=== PATIENT | female | born 1965 | race Caucasian/White ===

== ENCOUNTER → 2019-12-18 | Outpatient (CLI) | payer BC ==
[~2019-12-18] VITALS: Ht 165 cm; Wt 87.0 kg
[~2019-12-18] MED LIST: CATHETER FLUSH 10 ML SYR IV PRN; REGADENOSON 0.4 MG/5 ML SYR (LEXISCAN) IV ONE
[2019-12-18 09:37] VITALS: BP 139/90
[2019-12-18 09:48] VITALS: BP 146/74
--- NOTE | 2019-12-19 09:59 | STRESS TEST ---
DATE OF SERVICE: 12/18/2019 RESTING AND POST REGADENOSON TECHNETIUM-99M TETROFOSMIN SPECT CT IMAGING. ORDERING PHYSICIAN: Dr. Trevino. CLINICAL DIAGNOSIS: Near syncope and chest discomfort. Baseline images were carried out after injection of 10.98 mCi of technetium-99m Tetrofosmin. This was followed by 0.4 mg Regadenoson and 28.1 mCi of technetium-99m Tetrofosmin for stress imaging. The electrocardiogram showed sinus rhythm at baseline. It did not change significantly with the Regadenoson infusion. She noted some nausea following Regadenoson, which resolved in a few minutes. Review of images at rest and following stress does not indicate any significant perfusion defects consistent with myocardial ischemia or infarction. Gated images show normal global left ventricular systolic function and normal regional wall motion. Left ventricular ejection fraction is calculated to be 72%. Left ventricular end diastolic volume is 44 mL. TID is absent (0.97). CONCLUSIONS: 1. No evidence of any significant myocardial ischemia or infarction on this study. 2. Normal regional wall motion. 3. Normal global left ventricular systolic function with a calculated ejection fraction of 72%. Job ID: [id number] DocumentID: [id number] Dictated Date: 12/19/2019 08:55:05 Vascular Neurologist Date: 12/19/2019 09:58:19 Dictated By: MITALI TREVINO MD, MA, FACP, FACC, MTDD
== END ==
LOC: CARD 08:05
PROVIDERS: ATTEND Internal Medicine Cardiovascular Disease
DX: R07.89 Other chest pain (principal); R55 Syncope and collapse; Z72.0 Tobacco use
CPT/HCPCS: 78452; 93017

== ENCOUNTER → 2019-12-20 | Outpatient (CLI) | payer BC | LOC: CARD 09:00 → EDUNIT# 09:00 | PROVIDERS: ATTEND Internal Medicine Cardiovascular Disease | DX: R55 Syncope and collapse (principal); R07.89 Other chest pain; Z72.0 Tobacco use | CPT/HCPCS: 93225; 93226; 93306 ==

== ENCOUNTER → 2020-05-15 | Outpatient (CLI) | payer BC | LOC: LABNPT 07:02 | PROVIDERS: ATTEND Otolaryngology Otolaryngology/Facial Plastic Surgery | DX: G47.33 Obstructive sleep apnea (adult) (pediatric) (principal); Z53.9 Procedure and treatment not carried out, unspecified reason ==

== ENCOUNTER → 2020-06-13 | Outpatient (CLI) | payer BC ==
--- NOTE | 2020-06-13 16:18 | Diagnostic Imaging Report ---
INDICATION: Palpable lump in right breast. COMPARISON: Correlation is made with prior mammogram from 09/27/2019. EXAMINATION: 2D and 3D bilateral diagnostic mammography was performed with CAD. The current study was also evaluated with a Computer Aided Detection (CAD) system. FINDINGS: Scattered fibroglandular densities are identified, bilaterally. BB marker was placed at the area of palpable abnormality in the lower inner right breast. No underlying mass is detected. No malignant appearing microcalcifications are seen. Axillae are unremarkable. IMPRESSION: No mammographic features suspicious for malignancy are identified. Even so, directed sonographic interrogation of the area of palpable abnormality in the right breast is recommended and will be performed today. ACR BI-RADS Category 0: Incomplete. (Needs additional imaging evaluation). Result letter will be mailed to the patient. Note: At least 10% of breast cancer is not imaged by mammography. Dictated on workstation # [id number]
--- NOTE | 2020-06-13 16:28 | Diagnostic Imaging Report ---
INDICATION: Right breast lump. COMPARISON: Correlation is made with diagnostic mammogram from earlier the same day. EXAMINATION: Sonographic interrogation of the area of lump in the right breast was performed and corresponds to the 4:00 location, 4 cm from the nipple. FINDINGS: At this location, just deep to the skin surface, is an area of slightly increased echogenicity, measuring 1.2 x 0.6 x 0.9 cm. This has the appearance of a hematoma. Patient does report recent bruising at this location. No concerning sonographic finding is identified. No abnormal vascularity is seen. IMPRESSION: Probable resolving hematoma just deep to the skin surface at the area of palpable abnormality at 4:00 location of right breast. Continued clinical and self breast exam is recommended to confirm clearing of the palpable abnormality. Dictated on workstation # [id number]
== END ==
LOC: RAD 13:45
PROVIDERS: ATTEND Nurse Practitioner
DX: N63.14 Unspecified lump in the right breast, lower inner quadrant (principal)
CPT/HCPCS: 76642; 77066; G0279; 77062

== ENCOUNTER → 2020-06-13 | Outpatient (CLI) | payer BC | LOC: LABNPT 05:53 | PROVIDERS: ATTEND Otolaryngology Otolaryngology/Facial Plastic Surgery | DX: G47.33 Obstructive sleep apnea (adult) (pediatric) (principal); Z20.828 Contact with and (suspected) exposure to other viral communicable diseases | CPT/HCPCS: 87635 ==

== ENCOUNTER 2020-06-16 21:00 | Outpatient (CLI) | payer BC | END 2020-06-17 06:05 | disposition home or self-care (01) | LOC: SLEEP 21:00 | PROVIDERS: ATTEND Otolaryngology Otolaryngology/Facial Plastic Surgery | DX: G47.33 Obstructive sleep apnea (adult) (pediatric) (principal); I49.9 Cardiac arrhythmia, unspecified; T78.40XA Allergy, unspecified, initial encounter; Z90.710 Acquired absence of both cervix and uterus; Z98.890 Other specified postprocedural states | CPT/HCPCS: 95810 ==

== ENCOUNTER → 2020-07-04 | Outpatient (CLI) | payer BC | LOC: LABNPT 05:59 | PROVIDERS: ATTEND Otolaryngology Otolaryngology/Facial Plastic Surgery | DX: G47.33 Obstructive sleep apnea (adult) (pediatric) (principal); Z20.828 Contact with and (suspected) exposure to other viral communicable diseases | CPT/HCPCS: 87635 ==

== ENCOUNTER 2020-07-07 20:27 | Outpatient (CLI) | payer BC | END 2020-07-08 06:15 | disposition home or self-care (01) | LOC: SLEEP 20:27 | PROVIDERS: ATTEND Nurse Practitioner | DX: G47.33 Obstructive sleep apnea (adult) (pediatric) (principal); G47.00 Insomnia, unspecified; I10 Essential (primary) hypertension; G47.36 Sleep related hypoventilation in conditions classified elsewhere; I48.91 Unspecified atrial fibrillation; J30.9 Allergic rhinitis, unspecified; R09.81 Nasal congestion; R09.82 Postnasal drip | CPT/HCPCS: 95811 ==

== ENCOUNTER → 2020-09-04 | Outpatient (CLI) | payer BC | LOC: CARD 11:00 | PROVIDERS: ATTEND Nurse Practitioner Family | DX: R00.2 Palpitations (principal) | CPT/HCPCS: 93225; 93226 ==

== ENCOUNTER → 2020-11-10 | Outpatient (CLI) | payer BC ==
[~2020-11-10] MED LIST changes: -CATHETER FLUSH 10 ML SYR IV PRN; +GADOBUTROL 10 MMOL/10 ML (GADAVIST) VIAL IV ONE; -REGADENOSON 0.4 MG/5 ML SYR (LEXISCAN) IV ONE
--- NOTE | 2020-11-10 11:17 | Diagnostic Imaging Report ---
CLINICAL INDICATION: Patient is having headaches. EXAM: MRI of the brain performed without and with 8 cc of Gadavist IV contrast. Sequences include axial DWI, ADC map, axial gradient echo, axial T2, axial FLAIR, axial T1, axial T1 post IV contrast, coronal T1 fat-sat post IV contrast, and sagittal T1 post IV contrast. COMPARISON: None. FINDINGS: There is bhfsb-gv-ocmfdvus amount of patchy and confluent high T2 signal involving the bilateral basal ganglia region, bilateral external capsule region, and effie. There are small patchy areas of high T2 signal involving the bilateral cerebral hemisphere, malone radiata and centrum semiovale regions and periventricular regions. There is also small area of increased T2 signal involving the left cerebellar dentate nucleus region. These findings are grossly symmetric. There is no abnormal IV contrast enhancement. The brain parenchymal volume appears appropriate for patient's age. There is no hydrocephalus. Basal cisterns are unremarkable. The [place] vascular structures show no gross abnormality as visualized. The pituitary gland, sella, and suprasellar regions are unremarkable as visualized. The extracranial soft tissue, skull, and orbits are unremarkable. IMPRESSION: 1: There is a izyyp-xy-aurxemez amount of focal and patchy areas of high T2 signal involving the bilateral basal ganglia region, effie, external capsule, deep white matter in both cerebral hemispheres and left cerebellar dentate nucleus region. Most of these areas demonstrate some degree of symmetry. There is no abnormal IV contrast enhancement. These findings may be seen with central pontine myelinolysis and extra pontine myelinolysis. Behcet's disease should also be excluded. Toxic or metabolic encephalopathy should also be excluded. Lumbar puncture is suggested for further evaluation. Correlation and comparison to prior brain imaging, if available, would also help better evaluate for chronicity of these findings. 2: Otherwise, the remainder of this exam is unremarkable. Results of this report discussed with Dr. Denilson Mcbride via the telephone on 11/10/2020 at 1110 hours. Dictated by: Dictated on workstation # [id number]
== END ==
LOC: RAD 09:47
PROVIDERS: ATTEND Psychiatry & Neurology Neurology
DX: R51.9 Headache, unspecified (principal); R90.82 White matter disease, unspecified
CPT/HCPCS: 70553

== ENCOUNTER 2020-11-23 12:02 | Inpatient (IN) | payer BC ==
[~2020-11-23] VITALS: Ht 165.1 cm; Wt 84.1 kg
--- NOTE | 2020-11-23 12:17 | ED Neurological Problem ---
General Chief Complaint: Neuro-Stroke Like Symptoms Stated Complaint: POSS STROKE Source: patient Exam Limitations: no limitations History of Present Illness Date Seen by Provider: Nov 23, 2020 Time Seen by Provider: 12:14 Initial Comments To ER by private vehicle with reports of strokelike symptoms. These began at 11 PM last night. This began with unequal pupils. She noticed her left pupil to be larger than the right. She also had some dizziness, imbalance when walking, nausea. She has no history of this. She is on medication for hypertension. She smokes 6 to 7 cigarettes/day. She does not typically take an aspirin but she did take 1 this morning before coming to ER. However that seems to have resolved today. She also has a history of migraines and does report a left- sided frontal headache. Timing/Duration: other (12 hours) Severity: moderate Associated Symptoms: nausea/vomiting; No slurred speech; trouble walking Allergies and Home Medications Allergies Coded Allergies: Pork/Porcine Containing Products (Verified Allergy, Unknown, 11/23/20) codeine (Verified Allergy, Unknown, 11/23/20) crab (Verified Allergy, Unknown, 11/23/20) strawberry (Verified Allergy, Unknown, 11/23/20) Patient Home Medication List Home Medication List Reviewed: Yes Review of Systems Review of Systems Constitutional: see HPI Eyes: No Symptoms Reported Ears, Nose, Mouth, Throat: no symptoms reported Respiratory: no symptoms reported Cardiovascular: no symptoms reported Genitourinary: no symptoms reported Musculoskeletal: no symptoms reported Skin: no symptoms reported Psychiatric/Neurological: See HPI Endocrine: No Symptoms Reported Hematologic/Lymphatic: No Symptoms Reported Physical Exam Vital Signs Vital Signs - First Documented 11/23/20 12:03 Pulse 62 Resp 25 B/P (MAP) 185/99 (127) Pulse Ox 98 O2 Delivery Room Air Capillary Refill : Height, Weight, BMI Height: '" Weight: lbs. oz. kg; 31.95 BMI Method: General Appearance: WD/WN, no apparent distress, other (Alert and oriented very pleasant. Heart rate is normal sinus rhythm without ectopy in the 60s. Blood pressure 185/98.) HEENT: normal ENT inspection, other (Left pupil is about 5 mm right is about 3- 4. No gaze palsy. No visual changes.) Neck: non-tender, full range of motion Respiratory: no respiratory distress, no accessory muscle use Cardiovascular: regular rate, rhythm, no murmur Gastrointestinal: normal bowel sounds, non tender, soft Neurologic/Psychiatric: alert, normal mood/affect, oriented x 3 Crainal Nerves: normal hearing, normal speech, PERRL Coordination/Gait: abnormal gait (She did have an abnormal gait, nearly falling into the bed upon entry into the room.) Motor/Sensory: other (She has some ataxia when rubbing the left heel up and down the right hoff. Otherwise no ataxia is noted.) Skin: normal color, warm/dry Stroke Onset of Symptoms Date of Onset of Symptoms: Nov 22, 2020 Time of Symptom Onset: 23:00 Onset of Symptoms: Yes NIH Stroke Scale Assessment Level of Consciousness: 0=Alert (0), Level of Consciousness-Questions: 0=Answers both month/age (0), LOC Commands: 0=Performs both tasks (0), Visual Moses: 0=No visual loss (0), Facial Movement (Facial Paresis): 0=Normal symmetrical mnt (0), Motor Function-Arms Right: 0=No drift (0), Motor Function-Arms Left: 0=No drift (0), Motor Function-Legs Right: 0=No drift (0), Motor Function-Legs Left: 0=No drift (0), Limb Ataxia: 1=Present in one limb (1), Sensory: 0=Normal:no loss (0), Best Language: 0=No aphasia (0), Dysarthria: 0=Normal (0), Extinction & Inattention: 0=No abnormality (0), Total: 1 Stroke Thrombolytic Exclusion Age 18 or Over: Yes Acute intenal hemorrhage: No History of CVA: No Uncontrolled Coagulation Defec: No Intracranial Hemorrhage: No Severe Hypertension: No GI or Bleed: No Subarachnoid Hemorrhage: No Intracranial Neoplasm/Aneurysm: No Oral Anticoagulants: No Surgery or Trauma: No Puncture of Non-Compressible V: No Recent CPR: No Diabetic Hemorrhagic Retinopat: No Organ Biopsy: No Recent Obstetric Delivery: No Glucose: No Significant Hepatic Dysfunctio: No NIH Stoke Scale >22: No Bacterial Endocarditis: No Pericarditis: No Improving Symptoms: No Platelets: No TPA Contraindication: No Progress/Results/Core Measures Results/Orders Lab Results Laboratory Tests Test 11/23/20 12:08 11/23/20 12:10 11/23/20 12:37 Range/Units Glucometer 112 H 70-110 MG/DL White Blood Count 10.3 4.3-11.0 10^3/uL Red Blood Count 4.18 3.80-5.11 10^6/uL Hemoglobin 13.2 11.5-16.0 g/dL Hematocrit 38 35-52 % Mean Corpuscular Volume 90 80-99 fL Mean Corpuscular Hemoglobin 32 25-34 pg Mean Corpuscular Hemoglobin Concent 35 32-36 g/dL Red Cell Distribution Width 12.7 10.0-14.5 % Platelet Count 386 130-400 10^3/uL Mean Platelet Volume 10.6 9.0-12.2 fL Immature Granulocyte % (Auto) 0 % Neutrophils (%) (Auto) 53 42-75 % Lymphocytes (%) (Auto) 38 12-44 % Monocytes (%) (Auto) 5 0-12 % Eosinophils (%) (Auto) 3 0-10 % Basophils (%) (Auto) 0 0-10 % Neutrophils # (Auto) 5.5 1.8-7.8 10^3/uL Lymphocytes # (Auto) 3.9 1.0-4.0 10^3/uL Monocytes # (Auto) 0.5 0.0-1.0 10^3/uL Eosinophils # (Auto) 0.3 0.0-0.3 10^3/uL Basophils # (Auto) 0.0 0.0-0.1 10^3/uL Immature Granulocyte # (Auto) 0.0 0.0-0.1 10^3/uL Prothrombin Time 13.0 12.2-14.7 SEC INR Comment 0.9 0.8-1.4 Activated Partial Thromboplast Time 33 24-35 SEC D-Dimer 0.32 0.00-0.49 UG/ML Sodium Level 138 135-145 MMOL/L Potassium Level 2.6 L 3.6-5.0 MMOL/L Chloride Level 105 98-107 MMOL/L Carbon Dioxide Level 21 21-32 MMOL/L Anion Gap 12 5-14 MMOL/L Blood Urea Nitrogen 11 7-18 MG/DL Creatinine 1.17 0.60-1.30 MG/DL Estimat Glomerular Filtration Rate 48 BUN/Creatinine Ratio 9 Glucose Level 106 H 70-105 MG/DL Calcium Level 9.3 8.5-10.1 MG/DL Corrected Calcium 9.5 8.5-10.1 MG/DL Total Bilirubin 0.3 0.1-1.0 MG/DL Aspartate Amino Transf (AST/SGOT) 15 5-34 U/L Alanine Aminotransferase (ALT/SGPT) 12 0-55 U/L Alkaline Phosphatase 113 40-136 U/L Troponin I < 0.028 <0.028 NG/ML Total Protein 7.1 6.4-8.2 GM/DL Albumin 3.8 3.2-4.5 GM/DL Urine Color YELLOW Urine Clarity CLEAR Urine pH 6.5 5-9 Urine Specific [place] <=1.005 1.016-1.022 Urine Protein NEGATIVE NEGATIVE Urine Glucose (UA) NEGATIVE NEGATIVE Urine Ketones NEGATIVE NEGATIVE Urine Nitrite NEGATIVE NEGATIVE Urine Bilirubin NEGATIVE NEGATIVE Urine Urobilinogen 0.2 < = 1.0 MG/DL Urine Leukocyte Esterase NEGATIVE NEGATIVE Urine RBC (Auto) NEGATIVE NEGATIVE Urine RBC NONE /HPF Urine WBC NONE /HPF Urine Squamous Epithelial Cells 2-5 /HPF Urine Crystals NONE /LPF Urine Bacteria NEGATIVE /HPF Urine Casts NONE /LPF Urine Mucus NEGATIVE /LPF Urine Culture Indicated NO My Orders Orders - CRYSTAL JASMINE APRN Cbc With Automated Diff (11/23/20 12:13) Protime With Inr (11/23/20 12:13) Partial Thromboplastin Time (11/23/20 12:13) Comprehensive Metabolic Panel (11/23/20 12:13) Fibrin Degradation Products (11/23/20 12:13) Troponin I (11/23/20 12:13) Ua Culture If Indicated (11/23/20 12:13) Chest 1 View, Ap/Pa Only (11/23/20 12:13) Ekg Tracing (11/23/20 12:13) Nothing By Mouth (11/23/20 Lunch) Accucheck Stat ONCE (11/23/20 12:13) Ed Iv/Invasive Line Start (11/23/20 12:13) Vital Signs Stroke Patient Q15M (11/23/20 12:13) Ct Head Wo-R/O Stroke (11/23/20 12:13) O2 (11/23/20 12:13) Intake & Output 06,14,22 (11/23/20 12:13) Monitor-Rhythm Ecg Trace Only (11/23/20 12:13) Dysphagia Screening Tool (11/23/20 12:13) Post Thrombolytic Adminstratio (11/23/20 12:13) Lipid Panel (11/24/20 06:00) Ct Angio Head/Neck (11/23/20 12:13) Iohexol Injection (Omnipaque 350 Mg/Ml 1 (11/23/20 12:45) Received Contrast (Hold Metformin- Contr (11/23/20 12:45) Ns (Ivpb) (Sodium Chloride 0.9% Ivpb Bag (11/23/20 12:45) Ns Iv 500 Ml (Sodium Chloride 0.9%) (11/23/20 13:00) Potassium Cl 10meq/50ml Ivpb (Kcl 10 Meq (11/23/20 13:00) Potassium Chloride (Tablet) (K Dur Table (11/23/20 13:00) Ns W/Kcl 40 Meq/L (Ns Iv W/Kcl 40 Meq/L) (11/23/20 13:15) Ketorolac Injection (Toradol Injection) (11/23/20 13:15) Prochlorperazine Injection (Compazine In (11/23/20 13:15) Diphenhydramine Injection (Benadryl Inje (11/23/20 13:15) Hydralazine Injection (Apresoline Inject (11/23/20 13:45) Aspirin Chewable Tablet (Baby Aspirin Ch (11/23/20 13:45) Medications Given in ED Current Medications Medications Dose Ordered Sig/Nasir Route Start Time Stop Time Status Last Admin Dose Admin Diphenhydramine HCl 12.5 mg ONCE ONCE IVP 11/23/20 13:15 11/23/20 13:16 DC 11/23/20 13:21 12.5 MG Iohexol 100 ml ONCE ONCE IV 11/23/20 12:45 11/23/20 12:46 DC 11/23/20 12:44 75 ML Ketorolac Tromethamine 15 mg ONCE ONCE IVP 11/23/20 13:15 11/23/20 13:16 DC 11/23/20 13:21 15 MG Potassium Chloride 40 meq ONCE ONCE PO 11/23/20 13:00 11/23/20 13:01 DC 11/23/20 13:21 40 MEQ Prochlorperazine Edisylate 5 mg ONCE ONCE IV 11/23/20 13:15 11/23/20 13:16 DC 11/23/20 13:21 5 MG Vital Signs/I&O 11/23/20 12:03 Pulse 62 Resp 25 B/P (MAP) 185/99 (127) Pulse Ox 98 O2 Delivery Room Air Diagnostic Imaging Diagonstic Imaging: CT Comments NAME: [facility] REC#: [id number] PT STATUS: REG ER : 1965 PHYSICIAN: CRYSTAL JASMINE APRN ADMIT DATE: 11/23/20/ER Signed Date of Exam:11/23/20 CT HEAD WO-R/O STROKE PROCEDURE: CT head wo r/o stroke. TECHNIQUE: Multiple contiguous axial images were obtained through the brain without the use of intravenous contrast. Auto Exposure Controls were utilized during the CT exam to meet ALARA standards for radiation dose reduction. INDICATION: Blurry vision and headache. COMPARISON: MRI brain from 11/10/2020 FINDINGS: No intracranial hyperdense hemorrhage or space-occupying mass. No hydrocephalus or midline shift. Bourne-white matter differentiation remains preserved. Periventricular white matter hypoattenuation is unchanged since MRI of 11/10/2020. No skull fracture. Paranasal sinuses and mastoid air cells are clear. IMPRESSION: 1. No intracranial hemorrhage or large territorial infarct. 2. Ventricular white matter hypointensities are more completely evaluated on MRI brain from 11/10/2020 exam. Please see that report for more complete details. Dictated by: Dictated on workstation # [id number] Dict: 11/23/20 1233 Trans: 11/23/[address] [place] [id number] Interpreted by: KAT GALVAN MD Electronically signed by: KAT GALVAN MD 11/23/20 1300NAME: [facility] REC#: [id number] PT STATUS: REG ER : 1965 PHYSICIAN: CRYSTAL JASMINE APRN ADMIT DATE: 11/23/20/ER Draft Date of Exam:11/23/20 CT ANGIO HEAD/NECK PROCEDURE: CT angiography of the head and CT angiography of the neck with and without contrast. TECHNIQUE: Contiguous noncontrast images were obtained from the skull base through the vertex. After intravenous contrast administration, helical CT angiography of the neck was performed. Source data was reformatted into 3D MIP projections. Delayed post contrast acquisition was also obtained. Auto Exposure Controls were utilized during the CT exam to meet ALARA standards for radiation dose reduction. INDICATION: Blurred vision and headache, dizziness neural deficits. COMPARISON STUDY: Noncontrast CT scan of the head from earlier today. MRI of the brain from November 10. FINDINGS: The CT of the neck demonstrates normal takeoff of the great vessels from the arch. The left tibial artery is dominant. No vertebral dissection or aneurysm is present. The left carotid system appears normal. The right carotid system appears normal. The soft tissues of the neck have a normal appearance. Lung apices are clear. Degenerative changes are present in the spine. Central and bilateral foraminal stenosis present C6/C7. Right foraminal stenosis present at C7-T1. The CTA of the head demonstrates the vertebral basilar system to be normal. Both carotid siphons are normal. Both anterior cerebral arteries appear normal. Both middle cerebral arteries are normal. IMPRESSION: 1. The vascular structures of the head and neck appear normal. 2. Degenerative change changes are present to the spine with stenotic lesions as above. Dictated on workstation # [id number] Dict: 11/23/20 1248 Trans: 11/23/20 1307 CHRIS [id number] Interpreted by: DAVID STUBBS MD Electronically signed by: Departure Communication (Admissions) Time/Spoke to Admitting Phy: 13:[address] Steele, will admit full dose asa, neuro checks. [id number] is negative. Symptoms are unchanged. Blood pressure has dropped to 162/[address] scan without contrast shows no large terr itorial infarct. Angiogram report pending. In the meantime I am going to treat the migraine with some Toradol Compazine Benadryl. 1336-I spoke with Dr. Cintron from the stroke center at the [facility]. She feels this is more of a posterior circulation stroke than a migraine variant. Recommends admission for additional stroke work-up. Impression Primary Impression: Posterior circulation stroke Additional Impressions: Hypertension History of migraine Disposition: ADMITTED INPATIENT Condition: Stable Admissions Decision to Admit Reason: Admit from ER (General) Decision to Admit/Date: Nov 23, 2020 Time/Decision to Admit Time: 13:27 Departure-Patient Inst. Referrals: NO,LOCAL PHYSICIAN (PCP/Family) Primary Care Physician CRYSTAL JASMINE APRN Nov 23, 2020 12:17
[2020-11-23 12:27] LABS: BASOPHILS % (AUTO) 0 % (0-10); EOSINOPHILS # (AUTO) 0.3 10^3/uL (0.0-0.3); EOSINOPHILS % (AUTO) 3 % (0-10); HEMATOCRIT 38 % (35-52); HEMOGLOBIN 13.2 g/dL (11.5-16.0); LYMPHOCYTES # (AUTO) 3.9 10^3/uL (1.0-4.0); LYMPHOCYTES % (AUTO) 38 % (12-44); MEAN CORPUSCULAR HEMOGLOBIN 32 pg (25-34); MEAN CORPUSCULAR HGB CONC 35 g/dL (32-36); MEAN CORPUSCULAR VOLUME 90 fL (80-99); MEAN PLATELET VOLUME 10.6 fL (9.0-12.2); MONOCYTES # (AUTO) 0.5 10^3/uL (0.0-1.0); MONOCYTES % (AUTO) 5 % (0-12); NEUTROPHILS # (AUTO) 5.5 10^3/uL (1.8-7.8); NEUTROPHILS % (AUTO) 53 % (42-75); PLATELET COUNT 386 10^3/uL (130-400); WHITE BLOOD COUNT 10.3 10^3/uL (4.3-11.0)
[2020-11-23 12:34] LABS: ALBUMIN 3.8 GM/DL (3.2-4.5); CHLORIDE 105 MMOL/L (98-107); POTASSIUM 2.6 MMOL/L (3.6-5.0); SODIUM 138 MMOL/L (135-145)
[2020-11-23 12:35] LABS: CALCIUM 9.3 MG/DL (8.5-10.1); FIBRIN DEGRADATION PRODUCTS 0.32 UG/ML (0.00-0.49); INR 0.9 (0.8-1.4)
[2020-11-23 12:36] LABS: GLUCOSE 106 MG/DL (70-105); TOTAL PROTEIN 7.1 GM/DL (6.4-8.2)
[2020-11-23 12:37] LABS: CARBON DIOXIDE 21 MMOL/L (21-32)
[2020-11-23 12:38] LABS: BILIRUBIN,TOTAL 0.3 MG/DL (0.1-1.0)
[2020-11-23 12:40] LABS: ALKALINE PHOSPHATASE 113 U/L (40-136); CREATININE SERUM 1.17 MG/DL (0.60-1.30); GFR ESTIMATED 48
[2020-11-23 12:41] LABS: BUN/CREATININE RATIO 9
[2020-11-23 12:43] LABS: ALANINE AMINOTRANSFERASE 12 U/L (0-55)
[2020-11-23] MEDS ORDERED: NS 100 ML (IVPB) BAG IV ONE (12:45)
[2020-11-23] MEDS ORDERED: HOLD METFORMIN - RECEIVED CONTRAST 20 ML VIAL IV SCH (12:45)
[2020-11-23] MEDS ORDERED: IOHEXOL 350 MG/ML 100 ML (OMNIPAQUE 350) VIAL IV ONE (12:45)
--- NOTE | 2020-11-23 12:48 | Diagnostic Imaging Report ---
PROCEDURE: CT head wo r/o stroke. TECHNIQUE: Multiple contiguous axial images were obtained through the brain without the use of intravenous contrast. Auto Exposure Controls were utilized during the CT exam to meet ALARA standards for radiation dose reduction. INDICATION: Blurry vision and headache. COMPARISON: MRI brain from 11/10/2020 FINDINGS: No intracranial hyperdense hemorrhage or space-occupying mass. No hydrocephalus or midline shift. Bourne-white matter differentiation remains preserved. Periventricular white matter hypoattenuation is unchanged since MRI of 11/10/2020. No skull fracture. Paranasal sinuses and mastoid air cells are clear. IMPRESSION: 1. No intracranial hemorrhage or large territorial infarct. 2. Ventricular white matter hypointensities are more completely evaluated on MRI brain from 11/10/2020 exam. Please see that report for more complete details. Dictated by: Dictated on workstation # [id number]
[2020-11-23] MEDS ORDERED: NS IV 500 ML 500 ML IV SCH (13:00)
[2020-11-23] MEDS ORDERED: POTASSIUM CL 10MEQ/50ML IVPB 50 ML IV SCH (13:00)
[2020-11-23] MEDS ORDERED: KCL 20 MEQ TAB (K-DUR) PO ONE (13:00)
--- NOTE | 2020-11-23 13:02 | Diagnostic Imaging Report ---
CHEST 1 VIEW, AP/PA ONLY Indication: Stroke, headache and blurry vision Comparison: None available. Findings: No focal airspace disease in the visualized lungs. Please note that the posterior lower lobes are poorly evaluated by portable radiography. No pleural effusion or pneumothorax. Normal cardiomediastinal silhouette. Impression: 1. No acute cardiopulmonary process by portable radiography. Dictated by: Dictated on workstation # [id number]
--- NOTE | 2020-11-23 13:08 | Diagnostic Imaging Report ---
PROCEDURE: CT angiography of the head and CT angiography of the neck with and without contrast. TECHNIQUE: Contiguous noncontrast images were obtained from the skull base through the vertex. After intravenous contrast administration, helical CT angiography of the neck was performed. Source data was reformatted into 3D MIP projections. Delayed post contrast acquisition was also obtained. Auto Exposure Controls were utilized during the CT exam to meet ALARA standards for radiation dose reduction. INDICATION: Blurred vision and headache, dizziness neural deficits. COMPARISON STUDY: Noncontrast CT scan of the head from earlier today. MRI of the brain from November 10. FINDINGS: The CT of the neck demonstrates normal takeoff of the great vessels from the arch. The left tibial artery is dominant. No vertebral dissection or aneurysm is present. The left carotid system appears normal. The right carotid system appears normal. The soft tissues of the neck have a normal appearance. Lung apices are clear. Degenerative changes are present in the spine. Central and bilateral foraminal stenosis present C6/C7. Right foraminal stenosis present at C7-T1. The CTA of the head demonstrates the vertebral basilar system to be normal. Both carotid siphons are normal. Both anterior cerebral arteries appear normal. Both middle cerebral arteries are normal. IMPRESSION: 1. The vascular structures of the head and neck appear normal. 2. Degenerative change changes are present to the spine with stenotic lesions as above. Dictated by: Dictated on workstation # [id number]
[2020-11-23] MEDS ORDERED: diphenhydrAMINE 50 MG/ML INJ (BENADRYL) IVP ONE (13:15)
[2020-11-23] MEDS ORDERED: KETOROLAC 30 MG/ML VIAL IVP ONE (13:15)
[2020-11-23] MEDS ORDERED: PROCHLORPERAZINE 10 MG/2ML INJ (COMPAZINE) IV ONE (13:15)
[2020-11-23] MEDS: NS W/KCL 40 MEQ/L 1,000 ML IV SCH ×3 (13:22→21:26)
[2020-11-23 13:34] LABS: BILIRUBIN,URINE NEGATIVE (NEGATIVE); CLARITY,URINE CLEAR; COLOR,URINE YELLOW; GLUCOSE, URINE (UA) NEGATIVE (NEGATIVE); KETONES,URINE NEGATIVE (NEGATIVE); LEUKOCYTE ESTERASE ,URINE NEGATIVE (NEGATIVE); NITRITE,URINE NEGATIVE (NEGATIVE); PH,URINE 6.5 (5-9); PROTEIN,URINE NEGATIVE (NEGATIVE)
[2020-11-23] MEDS ORDERED: ASPIRIN 81 MG CHEW (CHILDREN'S ASA) PO ONE (13:45)
[2020-11-23] MEDS ORDERED: hydrALAZINE (APESOLINE) 20 MG/ML VIAL IV ONE (13:45)
[2020-11-23 13:49] LABS: BACTERIA,URINE NEGATIVE /HPF
[2020-11-23 14:48] VITALS: BP 163/102
[2020-11-23] MEDS ORDERED: hydrALAZINE (APESOLINE) 20 MG/ML VIAL IV PRN (15:00)
[2020-11-23 15:42] VITALS: BP 157/84
[2020-11-23] MEDS ORDERED: BACL10TA PO (15:49)
[2020-11-23] MEDS ORDERED: MELO10CA3 PO (15:49)
[2020-11-23] MEDS ORDERED: OMEP1CAP9 PO (15:49)
[2020-11-23] MEDS ORDERED: TOPI50TA13 PO (15:49)
[2020-11-23] MEDS ORDERED: PHYTOESTROGEN (15:49)
[2020-11-23] MEDS ORDERED: GBPN600T PO (15:49)
[2020-11-23] MEDS ORDERED: CHOL10007 PO (15:49)
[2020-11-23] MEDS ORDERED: METO200T48 PO (15:49)
[2020-11-23] MEDS ORDERED: DULO60CA59 PO (15:49)
[2020-11-23] MEDS ORDERED: ROPI1TAB PO (15:49)
[2020-11-23] MEDS ORDERED: CETI10TA23 PO (15:49)
[2020-11-23] MEDS ORDERED: LOSA100T57 PO (15:49)
[2020-11-23 20:00] VITALS: BP 154/94
[2020-11-23] MEDS: DULoxetine 30 MG (CYMBALTA) CAP PO SCH (20:33)
[2020-11-23] MEDS: BACLOFEN 10 MG (LIORESAL) TAB PO SCH (20:33)
[2020-11-23] MEDS ORDERED: GABAPENTIN 300 MG (NEURONTIN) CAP PO SCH (21:00)
[2020-11-23] MEDS ORDERED: rOPINIRole 1 MG (REQUIP) TABLET PO SCH ×2 (21:00)
[2020-11-24] VITALS: BP 136/71
[2020-11-24] MEDS: NS W/KCL 40 MEQ/L 1,000 ML IV SCH ×2 (01:18→05:55)
[2020-11-24 03:47] LABS: CHLORIDE 115 MMOL/L (98-107); POTASSIUM 4.3 MMOL/L (3.6-5.0); SODIUM 140 MMOL/L (135-145)
[2020-11-24 03:48] LABS: ALBUMIN 3.2 GM/DL (3.2-4.5)
[2020-11-24 03:49] LABS: CALCIUM 8.3 MG/DL (8.5-10.1); TRIGLYCERIDES 180 MG/DL (<150); VLDL CHOLESTEROL 36 MG/DL (5-40)
[2020-11-24 03:50] LABS: GLUCOSE 97 MG/DL (70-105); TOTAL PROTEIN 6.1 GM/DL (6.4-8.2)
[2020-11-24 03:51] LABS: CARBON DIOXIDE 18 MMOL/L (21-32)
[2020-11-24 03:52] LABS: BILIRUBIN,TOTAL 0.2 MG/DL (0.1-1.0)
[2020-11-24 03:54] LABS: ALKALINE PHOSPHATASE 99 U/L (40-136); CHOLESTEROL 174 MG/DL (< 200); CREATININE SERUM 0.82 MG/DL (0.60-1.30); GFR ESTIMATED > 60
[2020-11-24 03:55] LABS: BUN/CREATININE RATIO 10
[2020-11-24 03:56] LABS: HDL CHOLESTEROL 27 MG/DL (40-60)
[2020-11-24 03:57] LABS: ALANINE AMINOTRANSFERASE 12 U/L (0-55)
[2020-11-24 04:00] VITALS: BP 148/78
[2020-11-24] MEDS ORDERED: KCL 20 MEQ TAB (K-DUR) PO SCH (07:00)
[2020-11-24] MEDS ORDERED: GADOBUTROL 10 MMOL/10 ML (GADAVIST) VIAL IV ONE (08:15)
[2020-11-24 08:25] VITALS: BP 179/106
--- NOTE | 2020-11-24 08:57 | Diagnostic Imaging Report ---
PROCEDURE: MR imaging of the brain with and without contrast. TECHNIQUE: Multiplanar, multisequence MR imaging of the brain was performed with and without contrast. INDICATION: Blurred vision. Correlation is made with prior MRI brain from 11/10/2020. The diffusion-weighted images are without evidence of diffusion restriction to suggest acute ischemia. The normal expected flow-voids within the carotid siphons are seen. Ventricular size and sulcal pattern stable. Extensive periventricular and subcortical white matter changes are again noted similar to prior exam consistent with chronic microvascular ischemia. No acute intra-axial or extra-axial hemorrhage is detected. Corpus callosum is unremarkable. Sella and parasellar structures are unremarkable. No abnormal enhancement following contrast administration is identified. IMPRESSION: Extensive white matter changes consistent with chronic microvascular ischemia. No acute intracranial process is identified. Dictated by: Dictated on workstation # [id number]
[2020-11-24] MEDS ORDERED: LOSARTAN 100 MG (COZAAR) TABLET PO SCH ×2 (09:00)
[2020-11-24] MEDS ORDERED: toPIRamate 25 MG (TOPAMAX) TAB PO SCH (09:00)
[2020-11-24] MEDS ORDERED: PANTOPRAZOLE 20 MG TABLET (PROTONIX) PO SCH (09:00)
[2020-11-24] MEDS ORDERED: meTOprolol SUCCINATE 100 MG (TOPROL XL) TAB PO SCH ×2 (09:00)
[2020-11-24] MEDS ORDERED: ASPIRIN 325 MG (5 GR) TABLET PO SCH (09:00)
[2020-11-24] MEDS: BACLOFEN 10 MG (LIORESAL) TAB PO SCH ×2 (09:04→16:37)
[2020-11-24] MEDS: DULoxetine 30 MG (CYMBALTA) CAP PO SCH (09:08)
[2020-11-24] MEDS ORDERED: PHYTOESTROGEN PO (10:42)
[2020-11-24] MEDS ORDERED: MELO15TA39 PO (10:42)
[2020-11-24] MEDS ORDERED: ELET40TA8 PO (10:42)
[2020-11-24] MEDS ORDERED: ALBU18HF2 INH (10:42)
--- NOTE | 2020-11-24 11:11 | NUR ---
SPOKE WITH THE PT (SHE HAS HER HOME MEDS BOTTLES WITH HER) AND WENT THRU THE EXT MED HISTORY TO COMPLETE THE MED REC PT WAS ABLE TO TELL ME HOW/WHEN SHE TAKES EACH MED BACLOFEN 10MG AND MELOXICAM 15MG BOTH HAVE DIRECTIONS OF TID HOWEVER PT JUST TAKES 1 TAB HS ON BOTH OTC MEDS: VIT D3 250MCG ZEGERID CETIRIZINE PHYOESTROGEN
[2020-11-24 11:42] VITALS: BP 181/100
--- NOTE | 2020-11-24 11:44 | NUR ---
Pt is Jainism. [employer] Operator provided prayer and Communion.
--- NOTE | 2020-11-24 13:32 | Discharge Inst-Simple/Standard ---
Discharge Inst-Standard Patient Instructions/Follow Up Plan of Care/Instructions/FU: Please continue to take your medications as written. Please follow up with your primary care doctor to follow up this hospital stay. Activity as Tolerated: Yes Discharge Diet: No Restrictions Return to The Hospital For: Weakness, chest pain, slurred speech, blurred or double vision, if you feel you are getting worse. RAMYA VAZQUEZ MD Nov 24, 2020 13:32
--- NOTE | 2020-11-24 14:05 | Short Stay Summary-Hospitalist ---
History of Present Illness HPI/Chief Complaint Pt is a 55yoCF with a PMH of migraines and HTN who presented to the ER due to double vision. She reports her symptoms began around 2300 last night. She noticed she had unequal pupils as well and when she got up to walk she was off balanced. She had a left sided headache before and has a history of migraines. She was worked up for a stroke in the ER and CT head noncontrast was negative. She was admitted for further observation. This morning she reports feeling well and has nearly resolved symptoms. She has been ambulating around her room without difficulty. Source: patient Date Seen 11/24/20 Time Seen by a Provider: 13:58 Attending Physician Divya Curran MD PCP No,Local Physician Referring Physician Date of Admission Nov 23, 2020 at 13:37 Home Medications & Allergies Home Medications Reviewed patient Home Medication Reconciliation performed by pharmacy medication reconciliations upholstery technician and/or nursing. Patients Allergies have been reviewed. Allergies Allergies Coded Allergies Pork/Porcine Containing Products (Verified Allergy, Unknown, 11/23/20) codeine (Verified Allergy, Unknown, 11/23/20) crab (Verified Allergy, Unknown, 11/23/20) strawberry (Verified Allergy, Unknown, 11/23/20) Past Cmbivju-Birvnb-Fwvuwz Hx Past Med/Social Hx: Reviewed Nursing Past Med/Soc Hx Patient Social History Marrital Status: Alcohol Use: Denies Use Recreational Drug Use: No Smoking Status: Current Everyday Smoker Recent Foreign Travel: No Contact w/other who traveled: No Recent Hopitalizations: No Recent Infectious Disease Expo: No Immunizations Up To Date Tetanus Booster (TDap): Unknown Seasonal Allergies Seasonal Allergies: No Past Medical History Cardiac: Hypertension : No Family History Reviewed Nursing Family Hx No Pertinent Family Hx Review of Systems Constitutional: No chills, No fever EENTM: see HPI, blurred vision, double vision Respiratory: No cough, No dyspnea on exertion, No short of breath Cardiovascular: No chest pain, No edema, No palpitations Gastrointestinal: no symptoms reported Genitourinary: no symptoms reported Musculoskeletal: no symptoms reported Skin: no symptoms reported Psychiatric/Neurological: Headache Physical Exam Physical Exam Vital Signs Vital Signs - First Documented 11/23/20 11/23/20 12:03 14:48 Temp 35.7 Pulse 62 Resp 25 B/P (MAP) 185/99 (127) Pulse Ox 98 O2 Delivery Room Air Capillary Refill : Less Than 3 Seconds Height, Weight, BMI Height: '" Weight: lbs. oz. kg; 30.77 BMI Method: General Appearance: No Apparent Distress, WD/WN HEENT: Moist Mucous Membranes; No Scleral Icterus (L), No Scleral Icterus (R); Other (pupils unequal, left roughly 1mm larger than the right, equally reactive to light and accomodation) Neck: Normal Inspection, Supple Respiratory: Lungs Clear, No Accessory Muscle Use, No Respiratory Distress Cardiovascular: Regular Rate, Rhythm, No Murmur Extremity: No Calf Tenderness, No Pedal Edema Neurologic/Psychiatric: Alert, Oriented x3, No Motor/Sensory Deficits, Normal Mood/Affect Results Results/Procedures Labs Laboratory Tests 11/23/20 12:10 11/24/20 03:19 Patient resulted labs reviewed. Imaging [facility]. [place], [place] NAME: ETELVINA MCNEILL [facility] REC#: [id number] PT STATUS: REG ER : 1965 PHYSICIAN: CRYSTAL JASMINE APRN ADMIT DATE: 11/23/20/ER Signed Date of Exam:11/23/20 CT HEAD WO-R/O STROKE PROCEDURE: CT head wo r/o stroke. TECHNIQUE: Multiple contiguous axial images were obtained through the brain without the use of intravenous contrast. Auto Exposure Controls were utilized during the CT exam to meet ALARA standards for radiation dose reduction. INDICATION: Blurry vision and headache. COMPARISON: MRI brain from 11/10/2020 FINDINGS: No intracranial hyperdense hemorrhage or space-occupying mass. No hydrocephalus or midline shift. Bourne-white matter differentiation remains preserved. Periventricular white matter hypoattenuation is unchanged since MRI of 11/10/2020. No skull fracture. Paranasal sinuses and mastoid air cells are clear. IMPRESSION: 1. No intracranial hemorrhage or large territorial infarct. 2. Ventricular white matter hypointensities are more completely evaluated on MRI brain from 11/10/2020 exam. Please see that report for more complete details. Dictated by: Dictated on workstation # [id number] Dict: 11/23/20 1233 Trans: 11/23/[address] [place] [address] [id number] Interpreted by: KAT GALVAN MD Electronically signed by: KAT GALVAN MD 11/23/20 [address] [facility] [place], [place] NAME: ETELVINA MCNEILL [facility] REC#: [id number] PT STATUS: REG ER : 1965 PHYSICIAN: CRYSTAL JASMINE APRN ADMIT DATE: 11/23/20/ER Signed Date of Exam:11/23/20 CHEST 1 VIEW, AP/PA ONLY CHEST 1 VIEW, AP/PA ONLY Indication: Stroke, headache and blurry vision Comparison: None available. Findings: No focal airspace disease in the visualized lungs. Please note that the posterior lower lobes are poorly evaluated by portable radiography. No pleural effusion or pneumothorax. Normal cardiomediastinal silhouette. Impression: 1. No acute cardiopulmonary process by portable radiography. Dictated by: Dictated on workstation # [id number] Dict: 11/23/20 1301 Trans: 11/23/20 1301 [facility] [id number] Interpreted by: KAT GALVAN MD Electronically signed by: KAT GALVAN MD 11/23/20 1301 [facility] [place] NAME: ETELVINA MCNEILL [facility] REC#: [id number] PT STATUS: REG ER : 1965 PHYSICIAN: CRYSTAL JASMINE APRN ADMIT DATE: 11/23/20/ER Signed Date of Exam:11/23/20 CT ANGIO HEAD/NECK PROCEDURE: CT angiography of the head and CT angiography of the neck with and without contrast. TECHNIQUE: Contiguous noncontrast images were obtained from the skull base through the vertex. After intravenous contrast administration, helical CT angiography of the neck was performed. Source data was reformatted into 3D MIP projections. Delayed post contrast acquisition was also obtained. Auto Exposure Controls were utilized during the CT exam to meet ALARA standards for radiation dose reduction. INDICATION: Blurred vision and headache, dizziness neural deficits. COMPARISON STUDY: Noncontrast CT scan of the head from earlier today. MRI of the brain from November 10. FINDINGS: The CT of the neck demonstrates normal takeoff of the great vessels from the arch. The left tibial artery is dominant. No vertebral dissection or aneurysm is present. The left carotid system appears normal. The right carotid system appears normal. The soft tissues of the neck have a normal appearance. Lung apices are clear. Degenerative changes are present in the spine. Central and bilateral foraminal stenosis present C6/C7. Right foraminal stenosis present at C7-T1. The CTA of the head demonstrates the vertebral basilar system to be normal. Both carotid siphons are normal. Both anterior cerebral arteries appear normal. Both middle cerebral arteries are normal. IMPRESSION: 1. The vascular structures of the head and neck appear normal. 2. Degenerative change changes are present to the spine with stenotic lesions as above. Dictated by: Dictated on workstation # [id number] Dict: 11/23/20 1248 Trans: 11/23/20 1319 [facility] [id number] Interpreted by: DAVID STUBBS MD Electronically signed by: DAVID STUBBS MD 11/23/20 1319 [facility], [place] NAME: ETELVINA MCNEILL [facility] REC#: [id number] PT STATUS: ADM IN : 1965 PHYSICIAN: DIVYA CURRAN MD ADMIT DATE: 11/23/20/[facility] Draft Date of Exam:11/24/20 MRI BRAIN W/WO CONTRAST PROCEDURE: MR imaging of the brain with and without contrast. TECHNIQUE: Multiplanar, multisequence MR imaging of the brain was performed with and without contrast. INDICATION: Blurred vision. Correlation is made with prior MRI brain from 11/10/2020. The diffusion-weighted images are without evidence of diffusion restriction to suggest acute ischemia. The normal expected flow-voids within the carotid siphons are seen. Ventricular size and sulcal pattern stable. Extensive periventricular and subcortical white matter changes are again noted similar to prior exam consistent with chronic microvascular ischemia. No acute intra-axial or extra-axial hemorrhage is detected. Corpus callosum is unremarkable. Sella and parasellar structures are unremarkable. No abnormal enhancement following contrast administration is identified. IMPRESSION: Extensive white matter changes consistent with chronic microvascular ischemia. No acute intracranial process is identified. Dictated on workstation # [id number] Dict: 11/24/20 0837 Trans: 11/24/20 0857 [facility] [id number] Interpreted by: GELY PHILLIPS MD Electronically signed by: Short Stay Diagnosis Discharge Diagnosis-Short Stay Admission Diagnosis Unequal pupils Final Discharge Diagnosis Unequal pupils Conclusion Plan Unequal pupils No evidence of stroke on CT, CTA, or MRI No contact with dilatory medications Discussed case with Optometry and feel it is benign asymmetry Patient is to follow up tomorrow with Dr Mina for further evaluation of this DC home HTN BP mildly elevated this AM Resume home losartan Diagnosis/Problems Diagnosis/Problems (1) Unequal pupils Status: Acute (2) Hypertension Status: Acute Qualifiers: Qualified Codes: I10 - Essential (primary) hypertension (3) History of migraine Status: Acute Clinical Quality Measures Stroke: Date of last known well: Nov 22, 2020 Time of last known well: 23:00 RAMYA VAZQUEZ MD Nov 24, 2020 14:05
[2020-11-24] MEDS ORDERED: LOSARTAN 50 MG (COZAAR) TAB PO ONE (14:15)
[2020-11-24 14:40] VITALS: BP 168/88
--- NOTE | 2020-11-24 14:40 | NUR ---
ETELVINA MCNEILL demonstrates understanding of discharge instructions and accurately returns instructions upon questioning. Copy of Post-Discharge Instructions given to pt. ETELVINA MCNEILL is able to manage continuing needs after discharge. Patients belongings returned to PT. Patient discharged from 509-1 on 11/24/20 at 1440. ETELVINA MCNEILL left floor via W/C, accompanied by STAFF AND PER AUTO.
[2020-11-24 16:38] VITALS: BP 168/88
== END 2020-11-24 14:40 | disposition home or self-care (01) | DRG 66 ==
LOC: EDUNIT# 12:02 → ER 12:03 → CSD 13:37
PROVIDERS: ADMIT Internal Medicine; ATTEND Internal Medicine
DX: I63.9 Cerebral infarction, unspecified (principal); H53.2 Diplopia; R26.89 Other abnormalities of gait and mobility; R29.701 NIHSS score 1; I10 Essential (primary) hypertension; F17.210 Nicotine dependence, cigarettes, uncomplicated; Z88.6 Allergy status to analgesic agent
CPT/HCPCS: 36415; 70450; 70496; 70498; 70553; 71045; 80053; 80061; 81000; 82962; 84484; 85025; 85379; 85610; 85730; 93005; 93041; 93306

== ENCOUNTER → 2021-04-02 | Outpatient (CLI) | payer BC ==
[~2021-04-02] MED LIST changes: +ALBU18HF2 INH; +BACL10TA PO; +CETI10TA23 PO; +CHOL10007 PO; +DULO60CA59 PO; +ELET40TA8 PO; -GADOBUTROL 10 MMOL/10 ML (GADAVIST) VIAL IV ONE; +GBPN600T PO; +LOSA100T57 PO; +MELO10CA3 PO; +MELO15TA39 PO; +METO200T48 PO; +OMEP1CAP9 PO; +PHYTOESTROGEN; +PHYTOESTROGEN PO; +ROPI1TAB PO; +TOPI50TA13 PO
--- NOTE | 2021-04-02 10:38 | Diagnostic Imaging Report ---
INDICATION: Right upper quadrant pain. PROCEDURE: Ultrasound abdomen complete. TECHNIQUE: Multiple real-time grayscale images were obtained of the abdomen in various projections. There are no prior studies available for comparison. FINDINGS: There is no evidence for cholelithiasis or acute cholecystitis and the common bile duct is not dilated. The liver does not appear to be enlarged. There is no focal mass involving the liver and the biliary tree is not abnormally distended. Spectral and color-flow imaging of the portal vein shows the vein is patent. The spleen, kidneys, aorta and inferior vena cava are unremarkable. The pancreas is partially obscured by bowel gas and the tail in particular is difficult to evaluate. However, there is no definite pancreatic abnormality identified. IMPRESSION: 1. There is no acute abnormality of the abdomen. 2. If clinical concern regarding an acute abnormality of the gallbladder persists and further imaging is desired, then nuclear medicine hepatobiliary scan would be recommended. Dictated by: Dictated on workstation # [id number]
== END ==
LOC: RAD 08:15
PROVIDERS: ATTEND Nurse Practitioner
DX: R10.11 Right upper quadrant pain (principal)
CPT/HCPCS: 76700

== ENCOUNTER → 2021-04-16 | Outpatient (CLI) | payer BC ==
[~2021-04-16] MED LIST changes: +CATHETER FLUSH 10 ML SYR IV PRN
--- NOTE | 2021-04-16 14:51 | Diagnostic Imaging Report ---
INDICATION: Right upper quadrant pain. Patient was administered 4.3 mCi technetium 99m Choletec intravenously and imaging over the abdomen was performed. At 1 hour patient ingested 8 ounces of Ensure and the gallbladder ejection fraction was calculated. Patient denied discomfort during the study. There is homogeneous uptake of activity by the liver with prompt excretion of activity into the gallbladder and common duct. There is normal passage of activity into the small bowel. There does appear to be a small amount of activity within the stomach consistent with bile reflux. Gallbladder ejection fraction is normal at 59%. IMPRESSION: 1. Patent cystic duct and common bile duct. 2. Mild bile reflux into the stomach. 3. Normal gallbladder ejection fraction. Dictated by: Dictated on workstation # [id number]
== END ==
LOC: CARD 12:00
PROVIDERS: ATTEND Nurse Practitioner
DX: K21.9 Gastro-esophageal reflux disease without esophagitis (principal)
CPT/HCPCS: 78227; A9537

== ENCOUNTER 2022-01-11 11:31 | Outpatient (RCR) | payer BC ==
[~2022-01-11 11:31] MED LIST changes: -CATHETER FLUSH 10 ML SYR IV PRN; -CETI10TA23 PO; +CETI10TA24 PO
== END 2022-01-14 | disposition home or self-care (01) ==
LOC: CR 11:31
PROVIDERS: ATTEND Surgery
DX: Z29.8 Encounter for other specified prophylactic measures (principal); I25.110 Atherosclerotic heart disease of native coronary artery with unstable angina pectoris; Z95.1 Presence of aortocoronary bypass graft
CPT/HCPCS: 93798

== ENCOUNTER 2022-01-18 11:00 | Outpatient (RCR) | payer BC | END 2022-02-13 | disposition home or self-care (01) | LOC: CR 11:00 | PROVIDERS: ATTEND Surgery | DX: Z29.8 Encounter for other specified prophylactic measures (principal); I25.110 Atherosclerotic heart disease of native coronary artery with unstable angina pectoris; Z95.1 Presence of aortocoronary bypass graft | CPT/HCPCS: 93798 ==

== ENCOUNTER 2022-02-15 08:24 | Outpatient (RCR) | payer BC | END 2022-03-16 | disposition home or self-care (01) | LOC: CR 08:24 | PROVIDERS: ATTEND Surgery | DX: Z29.8 Encounter for other specified prophylactic measures (principal); I25.110 Atherosclerotic heart disease of native coronary artery with unstable angina pectoris; Z95.1 Presence of aortocoronary bypass graft ==

== ENCOUNTER → 2022-02-19 | Outpatient (CLI) | payer BC ==
--- NOTE | 2022-02-19 11:02 | Diagnostic Imaging Report ---
INDICATION: Lower abdominal pain. PROCEDURE: Ultrasound abdomen complete. TECHNIQUE: Multiple real-time grayscale images were obtained of the abdomen in various projections. FINDINGS: The liver is normal in size at 15 cm. Portal vein is patent and shows normal direction of flow. No liver mass is detected. Gallbladder is without stones or sludge. There is no wall thickening or biliary ductal dilatation. Pancreas was obscured by bowel gas. Spleen is normal in size at 11.7 cm. Aorta is nonaneurysmal. The IVC is patent. Right and left kidneys are without calculi or hydronephrosis. There is no ascites. IMPRESSION: Unremarkable abdominal ultrasound. Dictated by: Dictated on workstation # [id number]
== END ==
LOC: RAD 08:00
PROVIDERS: ATTEND Nurse Practitioner
DX: R10.31 Right lower quadrant pain (principal)
CPT/HCPCS: 76700

== ENCOUNTER → 2022-03-19 | Outpatient (CLI) | payer BC ==
--- NOTE | 2022-03-19 11:02 | Diagnostic Imaging Report ---
PROCEDURE: CT abdomen and pelvis without contrast. TECHNIQUE: Multiple contiguous axial images were obtained through the abdomen and pelvis without the use of intravenous contrast. Auto Exposure Controls were utilized during the CT exam to meet ALARA standards for radiation dose reduction. INDICATION: Right-sided abdominal pain and nausea. No prior studies are available for comparison. The lung bases are clear. The liver and gallbladder are unremarkable. No biliary ductal dilatation is seen. Pancreas and spleen are unremarkable. No adrenal mass is detected. No definite renal calculi are identified. No ureteral or bladder calculi are detected. There is no hydronephrosis. Aorta is nonaneurysmal. There is moderate stool in the colon. There is diverticulosis of the sigmoid and descending colon but no evidence of acute diverticulitis. No free fluid or fluid collection is detected. No inflammatory changes are seen. Bony structures are intact. IMPRESSION: 1. Uncomplicated diverticulosis. 2. No evidence of urinary tract calculi or obstruction. 3. No acute feature is detected. Dictated by: Dictated on workstation # [id number]
== END ==
LOC: RAD 10:15
PROVIDERS: ATTEND Nurse Practitioner
DX: K57.30 Diverticulosis of large intestine without perforation or abscess without bleeding (principal); R53.83 Other fatigue
CPT/HCPCS: 74176

== ENCOUNTER → 2022-11-12 | Outpatient (CLI) | payer BC | LOC: CARD 13:07 | PROVIDERS: ATTEND Internal Medicine Cardiovascular Disease | DX: I51.7 Cardiomegaly (principal); I25.110 Atherosclerotic heart disease of native coronary artery with unstable angina pectoris; Z95.1 Presence of aortocoronary bypass graft | CPT/HCPCS: 93306 ==

== ENCOUNTER → 2023-06-07 | Outpatient (CLI) | payer BC ==
[~2023-06-07] MED LIST changes: -LOSA100T57 PO; +LOSA100T58 PO; +TOPI-241 PO; -TOPI50TA13 PO
== END ==
LOC: CARD 13:50
PROVIDERS: ATTEND Registered Nurse
DX: I11.9 Hypertensive heart disease without heart failure (principal); I25.110 Atherosclerotic heart disease of native coronary artery with unstable angina pectoris; E78.2 Mixed hyperlipidemia; Z95.1 Presence of aortocoronary bypass graft
CPT/HCPCS: 93306